=== PATIENT | male | born 1960 | race African-American/Black ===

== ENCOUNTER 2019-12-30 22:07 | Emergency (ER) | payer OTHER ==
[~2019-12-30] VITALS: Ht 188 cm; Wt 90.7 kg
[2019-12-30 22:43] LABS: URINE BILIRUBIN NEGATIVE (Negative); URINE BLOOD TRACE (Negative); URINE CLARITY CLEAR; URINE COLOR YELLOW; URINE GLUCOSE-RANDOM* NEGATIVE (Negative); URINE KETONES NEGATIVE (Negative); URINE LEUKOCYTES-REFLEX 2+ (Negative); URINE NITRITE-REFLEX NEGATIVE (Negative); URINE PROTEIN (DIPSTICK) NEGATIVE (Negative); URINE SPECIFIC GRAVITY <= 1.005 (1.005-1.035); URINE UROBILINOGEN 0.2 E.U./dl (0.2-1.0)
[2019-12-30 22:57] LABS: SQUAMOUS None Seen /LPF (0-3); URINE WBC-REFLEX 6-15 Few /HPF (0-5)
[2019-12-30 22:58] LABS: BACTERIA-REFLEX 1-9 Few /HPF (None Seen); CASTS None Seen /LPF (None Seen); CRYSTALS None Seen /LPF (None Seen); URINE RBC 0-2 Rare /HPF (0-2)
[2019-12-30 23:17] LABS: ABSOLUTE NEUTROPHILS 4.1 thou/uL (1.4-8.2); BASOPHILS 0.7 % (0.0-2.0); EOSINOPHILS 2.9 % (0.0-3.0); HEMATOCRIT 39.8 % (42.0-52.0); HEMOGLOBIN 14.3 gm/dL (14.0-18.0); LYMPHOCYTES 32.1 % (24.0-44.0); MCH 33.1 pg (26.0-34.0); MONOCYTES 7.5 % (1.0-8.0); PLATELET COUNT 226 thou/uL (150-400); POLYS 56.8 % (36.0-66.0); RBC 4.33 mil/uL (4.50-6.00); RDW 13.7 % (10.5-14.5); WBC 7.2 thou/uL (4.0-11.0)
[2019-12-30 23:25] LABS: CALCIUM 8.5 mg/dL (8.5-10.1); CREATININE 0.9 mg/dL (0.7-1.3); POTASSIUM 3.8 mmol/L (3.5-5.1)
[2019-12-30 23:30] LABS: TOTAL BILIRUBIN 0.4 mg/dL (0.2-1.0); TOTAL PROTEIN 8.4 g/dL (6.4-8.2)
[2019-12-31 02:09] VITALS: BP 97/55
== END 2019-12-31 02:15 | disposition home or self-care (01) ==
LOC: ER 22:07
PROVIDERS: Emergency Medicine
DX: E86.0 Dehydration (principal); F10.920 Alcohol use, unspecified with intoxication, uncomplicated; F17.210 Nicotine dependence, cigarettes, uncomplicated

== ENCOUNTER 2020-04-13 22:14 | Inpatient (IN) | payer OTHER ==
[~2020-04-13] VITALS: Ht 172.7 cm; Wt 69.4 kg
[2020-04-13 22:18] VITALS: BP 115/64
--- NOTE | 2020-04-13 22:44 | NUR ---
C COLLAR PLACED AT 2235
--- NOTE | 2020-04-13 23:05 | NUR ---
PT BACK FROM CT SCAN, PT AGITATED, YELLING OUT I CAN'T BREATHE, TAKE THIS OFF REMOVING C-COLLAR, DR LAIRD NOTIFIED. PROVIDER CAME IN THE ROOM AND EXAMINED PT, AND SAID CAN LEAVE C-COLLAR OFF AT THIS TIME. DR LAIRD WRAPPED AROUND A TOWEL AROUND PT'S NECK. PT'S VITALS STABLE.
[2020-04-13 23:24] LABS: ABSOLUTE NEUTROPHILS 2.5 thou/uL (1.4-8.2); BASOPHILS 0.6 % (0.0-2.0); EOSINOPHILS 2.3 % (0.0-3.0); HEMATOCRIT 38.8 % (42.0-52.0); HEMOGLOBIN 13.3 gm/dL (14.0-18.0); LYMPHOCYTES 41.2 % (24.0-44.0); MCH 31.3 pg (26.0-34.0); MCHC 34.2 g/dL (28.0-37.0); MCV 91.4 fL (80.0-100.0); MONOCYTES 7.8 % (1.0-8.0); PLATELET COUNT 147 thou/uL (150-400); POLYS 48.1 % (36.0-66.0); RBC 4.25 mil/uL (4.50-6.00); RDW 13.3 % (10.5-14.5); WBC 5.3 thou/uL (4.0-11.0)
[2020-04-13 23:25] LABS: ANION GAP 12 mmol/L (7-16); BUN 9 mg/dL (7-18); CALCIUM 8.6 mg/dL (8.5-10.1); CHLORIDE 102 mmol/L (98-107); CO2 26 mmol/L (21-32); GLUCOSE 115 mg/dL (74-106); POTASSIUM 3.7 mmol/L (3.5-5.1); SODIUM 140 mmol/L (136-145)
[2020-04-13 23:28] LABS: URINE BILIRUBIN NEGATIVE (Negative); URINE BLOOD NEGATIVE (Negative); URINE CLARITY CLEAR; URINE COLOR YELLOW; URINE GLUCOSE-RANDOM* NEGATIVE (Negative); URINE KETONES NEGATIVE (Negative); URINE LEUKOCYTES-REFLEX NEGATIVE (Negative); URINE NITRITE-REFLEX NEGATIVE (Negative); URINE PROTEIN (DIPSTICK) NEGATIVE (Negative); URINE SPECIFIC GRAVITY <= 1.005 (1.005-1.035); URINE UROBILINOGEN 0.2 E.U./dl (0.2-1.0)
[2020-04-13 23:34] LABS: ALBUMIN 3.5 g/dL (3.4-5.0); MAGNESIUM 1.6 mg/dL (1.8-2.4); SGOT 46 U/L (15-37); SGPT 52 U/L (30-65); TOTAL BILIRUBIN 0.4 mg/dL (0.2-1.0); TOTAL PROTEIN 8.5 g/dL (6.4-8.2); TROPONIN-I <0.06 ng/mL (<0.06)
[2020-04-13 23:36] LABS: AMP/METHAMP Negative (Negative); BARBITURATES Negative (Negative); BENZODIAZEPINES Negative (Negative); COCAINE Negative (Negative); METHADONE Negative (Negative); OPIATES Negative (Negative); PCP Negative (Negative)
--- NOTE | 2020-04-14 03:00 | NUR ---
I CALLED THE PT'S DAUGHTER TAMARA, ON THIS NUMMBER [phone], THAT WAS IN PT'S [place], I LEFT MESSAGE ON VOICEMAIL. PT STATES SHE HAS TWO OTHER DAUGHTERS THAT LIVE OUT OF STATE, BUT COULD NOT TELL ME THEIR NAMES OT CONTACT NUMBERS. PT STATES HE IS HOMELESS BUT SOMETIMES LIVES WITH FRIENDS.
[2020-04-14 03:31] LABS: CALCIUM 8.2 mg/dL (8.5-10.1); MAGNESIUM 1.6 mg/dL (1.8-2.4); POTASSIUM 3.7 mmol/L (3.5-5.1)
[2020-04-14 06:13] VITALS: BP 129/83
[2020-04-14 06:23] VITALS: BP 131/81
--- NOTE | 2020-04-14 17:39 | NUR ---
ASSUMED CARE AT SHIFT CHANGE, ALERT AND ORIENTED TO SELF, PATIENT IS POOR HISTORIAN, AND I WAS UNABLE TO COMPLETE ADMSION HX. VSS AND CIWA @3. PATIENT DENIES ANY DISCOMFORT. PATIENT ASKED ME IF I CAN HIS DAUGHTER, DAUGHTER CALLED AND LEFT A MASSEGE IN HER VOICEMAIL. ASSESSMENT DOCUMENTED AND WILL CONTINUE WITH POC.
[2020-04-14 19:36] VITALS: BP 127/64
[2020-04-15 04:17] VITALS: BP 124/69
--- NOTE | 2020-04-15 07:52 | NUR ---
PT RESTING QUIETLY IN ROOM AFTER PRN PAIN MED AND ANXIETY MED GIVEN, IV INFUSING IN R AC, VSS HR SB, VOIDING PER URINAL, DAUGHTER CALLED AND UPDATED, WILL CON'T TO MONITOR PER PPOC.
--- NOTE | 2020-04-15 08:13 | EKG ---
[facility] [place] [address] ELECTROCARDIOGRAM REPORT Name: ANNALISEJIMMY Room #: 218-P [facility] M.R.#: [id number] Admission: 04/14/20 Attend Phys: Levar Sigala MD Discharge: Date of : 58 Report #: [id number] THIS REPORT FOR: cc: EFRAÍN So family physician/PCP EFRAÍN - Saray family physician/PCP David Soliz MD [facility] THIS REPORT FOR: //name// [facility] ED Test Date: 2020-04-13 Test Time: 23:16:43 Pat Name: JIMMY WOODY Department: Room: 218 Gender: M Social Media Marketing Specialist: florence : 1960 Requested By: Koko Alarcon Order Number: [id number] MD: David Soliz Measurements Intervals Lamy Rate: 76 P: 59 AL: 154 QRS: 51 QRSD: 87 T: 25 QT: 384 QTc: 432 Interpretive Statements Sinus rhythm Ventricular premature complex Probable left atrial enlargement No previous ECG available for comparison Electronically Signed On 04-15-2020 8:13:08 CDT by David Soliz [email or web address] <ELECTRONICALLY SIGNED> By: David Soliz MD, FACC 04/15/20 0813 2316 David Soliz MD, [facility] /EPI
[2020-04-15 08:20] VITALS: BP 135/81
[2020-04-15 12:53] VITALS: BP 129/70
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
[2020-04-15 20:11] VITALS: BP 125/68
[2020-04-16 04:09] LABS: HEMATOCRIT 36.6 % (42.0-52.0); HEMOGLOBIN 12.5 gm/dL (14.0-18.0); MCH 31.5 pg (26.0-34.0); MCHC 34.2 g/dL (28.0-37.0); MCV 92.2 fL (80.0-100.0); RBC 3.97 mil/uL (4.50-6.00); RDW 13.6 % (10.5-14.5); WBC 3.8 thou/uL (4.0-11.0)
[2020-04-16 04:31] LABS: CALCIUM 7.9 mg/dL (8.5-10.1); CREATININE 0.7 mg/dL (0.7-1.3); POTASSIUM 3.6 mmol/L (3.5-5.1)
[2020-04-16 06:00] VITALS: BP 143/81
[2020-04-16 07:21] VITALS: BP 141/82
--- NOTE | 2020-04-16 08:31 | NUR ---
ASSUME CARE 1900. PT/VITALS STABLE. A/O X 4/PLEASANT. DENEIS ANY PAIN. TOLERATES ACTIVITY WELL WITH NO SOB NOTED. NO DISTRESS NOTED. SB ON MONITOR. ASSESSMENT CHARTED. PROGRESSING WELL WITH POC. PLAN IS POSSIBLE DISCHARGE TODAY. WILL [id number] TO MONITOR AND FOLLOW WIHT POC
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
[2020-04-16 11:55] VITALS: BP 141/69
[2020-04-16 12:20] VITALS: BP 141/82
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
== END 2020-04-16 12:40 | disposition home or self-care (01) | DRG 897 ==
LOC: ER 22:14 → 2N 04-14 01:05 → EROBS 04-14 01:05 → 2N 04-14 06:33
PROVIDERS: Emergency Medicine; Nurse Practitioner Family; ADMIT Hospitalist; ATTEND Hospitalist
DX: F10.129 Alcohol abuse with intoxication, unspecified (principal); F17.210 Nicotine dependence, cigarettes, uncomplicated; G47.00 Insomnia, unspecified; N40.0 Benign prostatic hyperplasia without lower urinary tract symptoms; E53.8 Deficiency of other specified B group vitamins; E83.42 Hypomagnesemia; S06.0X0A Concussion without loss of consciousness, initial encounter; X58.XXXA Exposure to other specified factors, initial encounter; Y93.89 Activity, other specified; Y92.89 Other specified places as the place of occurrence of the external cause; Y99.8 Other external cause status; Z59.0 Homelessness
CPT/HCPCS: 10081

== ENCOUNTER 2021-01-22 01:49 | Emergency (ER) | payer OTHER ==
[~2021-01-22] VITALS: Ht 172.7 cm; Wt 68.0 kg
[2021-01-22 02:03] VITALS: BP 113/54
== END 2021-01-22 03:30 | disposition home or self-care (01) ==
LOC: ER 01:49
DX: M54.5 Low back pain (principal); G89.29 Other chronic pain; M25.552 Pain in left hip; F17.210 Nicotine dependence, cigarettes, uncomplicated

== ENCOUNTER 2021-03-29 01:23 | Emergency (ER) | payer OTHER ==
[~2021-03-29] VITALS: Ht 170.2 cm; Wt 76.2 kg
[2021-03-29 03:56] VITALS: BP 138/72
== END 2021-03-29 03:57 | disposition home or self-care (01) ==
LOC: ER 01:23
DX: M54.5 Low back pain (principal); G89.29 Other chronic pain; F17.210 Nicotine dependence, cigarettes, uncomplicated